=== PATIENT | female | born 1975 | race Caucasian/White ===

== ENCOUNTER → 2019-10-02 | Outpatient (CLI) | payer BC | LOC: MC.RAD 13:10 | DX: Z12.31 Encounter for screening mammogram for malignant neoplasm of breast (principal); M06.9 Rheumatoid arthritis, unspecified ==

== ENCOUNTER → 2023-10-09 | Outpatient (CLI) | payer BC | LOC: MC.RAD 14:51 | DX: Z12.31 Encounter for screening mammogram for malignant neoplasm of breast (principal) ==